=== PATIENT | female | born 1965 | race Caucasian/White ===

== ENCOUNTER 2018-01-16 08:38 | Emergency (ER) | payer OTHER ==
[2018-01-16] MEDS ORDERED: KETOROLAC 30 MG/ML VIAL IM STA (08:53)
--- NOTE | 2018-01-16 08:57 | ED Physician Documentation ---
PD HPI FOCAL NEURO - Stated complaint Stated Complaint: RT SIDE FACIAL NUMBNESS - Chief complaint Chief Complaint: Neuro - History obtained from History obtained from: Patient - History of Present Illness Timing - onset: Today Timing - duration: Days (1) Timing - details: Abrupt onset (awoke with it this am) Time of symptom onset unknown: Time of onset unknown Severity of deficit: Severe Weakness: Face, Right Associated symptoms: Headache (R sided, similar to normal headaches.) Contributing factors: negative: Anticoagulated, Vascular dz, Atrial fibrillation, Prosthetic heart valve Baseline status: positive: A&OX3, ambulatory, indep Similar symptoms before: Has not had sx before Recently seen: Not recently seen Review of Systems Ten Systems: 10 systems reviewed and negative Constitutional: denies: Fever, Chills Ears: denies: Ear pain Nose: denies: Rhinorrhea / runny nose, Congestion Throat: denies: Sore throat Respiratory: denies: Dyspnea, Cough, Wheezing GI: denies: Nausea, Vomiting, Diarrhea Skin: denies: Rash Musculoskeletal: denies: Neck pain, Back pain Neurologic: denies: Confused, Altered mental status, Head injury, LOC PD PAST MEDICAL HISTORY - Past Medical History Neuro: Headaches - Past Surgical History 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 - Present Medications Home Medications: Ambulatory Orders Medication Instructions Recorded Confirmed Acetaminophen [Tylenol Extra 01/16/18 Strength] Valacyclovir HCl [Valtrex] 1,000 mg PO TID #21 tablet 01/16/18 predniSONE [Prednisone] 60 mg PO DAILY #21 tablet 01/16/18 - Allergies Allergies/Adverse Reactions: Allergies Allergy/AdvReac Type Severity Reaction Status Date / Time No Known Drug Allergies Allergy Verified 01/16/18 08:47 - Social History Does the pt smoke?: Yes Smoking Status: Current every day smoker Does the pt drink ETOH?: Yes Does the pt have substance abuse?: No - Immunizations Immunizations are current?: Yes PD ED PE NORMAL - Vitals Vital signs reviewed: Yes - General General: Alert and oriented X 3, No acute distress, Well developed/nourished - HEENT HEENT: Atraumatic, PERRL, EOMI, Ears normal, Moist mucous membranes, Pharynx benign - Neck Neck: Supple, no meningeal sign - Cardiac Cardiac: RRR, Strong equal pulses - Respiratory Respiratory: No respiratory distress, Clear bilaterally - Abdomen Abdomen: Soft, Non tender, Non distended - Derm Derm: Warm and dry - Extremities Extremities: No deformity, Normal ROM s pain - Neuro Neuro: Alert and oriented X 3, Other (R sided CN VII palsy including forehead, + bells phenomenon) - Psych Psych: Normal mood, Normal affect NIHSS - Time Time: 08:50 - Level of Consciousness Level of consciousness: (0) Alert, Keenly responsive LOC Questions: (0) Answers both Q's correct LOC Commands: (0) Performs both correctly - Gaze Best Gaze: (0) Normal - Visual Visual: (0) No loss - Facial Palsy Facial Palsy: (3) Complete paralysis (R sided) - Motor Arms (both separate) Motor Arm (right): (0) No drift Motor Arm (left): (0) No drift - Motor Legs (both separate) Motor Leg (right): (0) No drift Motor Leg (left): (0) No drift - Limb Ataxia Limb Ataxia: (0) Absent - Sensory Sensory: (0) Normal - Best Language Best Language: (0) No aphasia - Dysarthria Dysarthria: (0) Normal - Extinction and Inattention (formally neg Extinction and inattention: (0) No abnormality - Total Score/Results Total Score/Result: 3 Results - Vitals Vitals: Vital Signs - 24 hr 01/16/18 01/16/18 08:45 08:55 Temperature 36.6 C Heart Rate 78 78 Respiratory 18 16 Rate Blood Pressure 185/94 H 159/110 H O2 Saturation 100 98 Oxygen O2 Source Room air PD MEDICAL DECISION MAKING - ED course Complexity details: reviewed results, re-evaluated patient, considered differential, d/w patient ED course: Patient is a 52-year-old female who 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 She has flattening of the nasolabial fold, positive Moore's phenomena, loss of forehead function on the right side. No evidence of stroke. Will place on prednisone and valacyclovir. Will also use artificial tears at home. She was given Toradol for her headache. Headaches are chronic and unchanged. No evidence of aortic dissection, carotid dissection, stroke, tumor. Patient counseled regarding signs and symptoms for which I believe and urgent re-evaluation would be necessary. Patient with good understanding of and agreement to plan and is comfortable going home at this time This document was made in part using voice recognition software. While efforts are made to proofread this document, sound alike and grammatical errors may occur. Departure - Departure Disposition: 01 Home, Self Care Clinical Impression: Moore palsy Condition: Good Instructions: ED [place]ner Palsy Follow-Up: Isacc Campos MD [Primary Care Provider] - (in 1-2 weeks) Prescriptions: predniSONE [Prednisone] 60 mg PO DAILY #21 tablet Valacyclovir HCl [Valtrex] 1,000 mg PO TID #21 tablet Comments: Use the prednisone and valacyclovir as prescribed. Return if you worsen. You should also use artificial tears to prevent the right eye from becoming too dry and causing ulcerations. If it is becoming dry at night, you can either use gel tears or even tape the eyelid shut. Follow-up with your doctor for further care.
[2018-01-16 09:10] VITALS: BP 165/100
== END 2018-01-16 09:16 | disposition home or self-care (01) ==
LOC: ED 08:38
DX: G51.0 Bell's palsy (principal); F17.200 Nicotine dependence, unspecified, uncomplicated
CPT/HCPCS: 96372; 99283

== ENCOUNTER 2018-03-24 08:07 | Outpatient (CLI) | payer OTHER ==
--- NOTE | 2018-03-26 09:21 | Mammography Report ---
Reason: BASELINE Procedure Date: 03/24/2018 Accession Number: [id number] / [id number] Procedure: JULIETTE - Screening Mammo Dig Bilat CPT Code: FULL RESULT: EXAM: Screening Mammo Dig Bilat DATE: 03/24/2018 8:53 AM CLINICAL HISTORY: Screening encounter. Family history of breast cancer in a grandmother at the age of 50. Baseline mammogram. TECHNIQUE: Bilateral CC and MLO views were obtained. A right laterally exaggerated CC view was obtained. COMPARISON: None FINDINGS: The breasts demonstrate diffuse fatty replacement bilaterally. No suspicious masses, clustered microcalcifications, or regions of architectural distortion are identified. IMPRESSION: Negative examination RECOMMENDATION: Routine annual screening unless otherwise clinically indicated. BIRADS CATEGORY 1: Negative STANDARD QUALIFYING STATEMENTS: 1. This examination was not reviewed with the aid of Computer-Aided Detection (CAD). 2. A negative or benign imaging report should not preclude biopsy if clinically suspicious findings are present. 3. Dense breasts may obscure an underlying neoplasm. 4. This examination was reviewed without the aid of 3D breast imaging (tomosynthesis).
== END 2018-03-24 08:08 | disposition home or self-care (01) ==
LOC: DI 08:07
PROVIDERS: ATTEND Family Medicine
DX: Z12.31 Encounter for screening mammogram for malignant neoplasm of breast (principal); Z80.3 Family history of malignant neoplasm of breast
CPT/HCPCS: 77067

== ENCOUNTER 2022-11-15 15:34 | Outpatient (CLI) | payer OTHER ==
--- NOTE | 2022-11-16 14:09 | XRAY Report ---
PROCEDURE: Sacrum/Coccyx INDICATIONS: LOW BACK PAIN TECHNIQUE: 3 views of the sacrum and coccyx acquired. COMPARISON: none FINDINGS: Bones: No fractures or dislocations. No suspicious bony lesions. Soft tissues: Visualized bowel gas pattern is normal. No suspicious soft tissue densities. IMPRESSION: No visualized acute fracture or dislocation. However, occult injury cannot be excluded. Recommend hugo rt interval imaging follow-up in 7-10 days as clinically indicated for additional evaluation. Reviewed by: Shauna Haines MD on 11/16/2022 2:08 PM PDT Approved by: Shauna Haines MD on 11/16/2022 2:08 PM PDT Station ID: [id number]
--- NOTE | 2022-11-16 14:10 | XRAY Report ---
PROCEDURE: Lumbar Spine 2 View INDICATIONS: LOW BACK PAIN TECHNIQUE: 2 views of the lumbar spine were acquired. COMPARISON: None. FINDINGS: Bones: 5 [id number] vertebrae are present. There is trace L4 on L5 retrolisthesis at L5 on S1. Moderate disc narrowing is noted. No vertebral body compression fractures. No suspicious bony lesio ns. Soft tissues: Overlying bowel gas pattern is normal. No suspicious soft tissue calcifications. IMPRESSION: Degenerative changes most notable at L5-S1 Reviewed by: Shauna Haines MD on 11/16/2022 2:09 PM PDT Approved by: Shauna Haines MD on 11/16/2022 2:09 PM PDT Station ID: [id number]
== END 2022-11-15 15:35 | disposition home or self-care (01) ==
LOC: DI 15:34
PROVIDERS: ATTEND Student in an Organized Health Care Education/Training Program
DX: M43.17 Spondylolisthesis, lumbosacral region (principal)